=== PATIENT | male | born 2000 | race Two or more races ===

== ENCOUNTER 2023-10-15 13:12 | Emergency (ER) | payer OTHER ==
[2023-10-15 13:20] VITALS: BP 115/77; PULSE 100; RESP 16; TEMP 98.5
[2023-10-15] MEDS ORDERED: DEXAMETHASONE SOD PHOSPHATE 10 MG/1 ML VIAL IVPUSH ONE (13:37)
[2023-10-15] MEDS ORDERED: DEXAMETHASONE SOD PHOSPHATE 10 MG/1 ML VIAL ONE (13:38)
[2023-10-15] MEDS ORDERED: DEXAMETHASONE SOD PHOSPHATE 10 MG/1 ML VIAL IM ONE (13:43)
== END 2023-10-15 13:45 | disposition home or self-care (01) ==
LOC: JERFT 13:12
PROC: 3E023GC Introduction of Other Therapeutic Substance into Muscle, Percutaneous Approach (ICD-10-PCS; principal; 2023-10-15)
DX: J02.9 Acute pharyngitis, unspecified (principal)
CPT/HCPCS: 99284-25; J1100

== ENCOUNTER 2024-01-08 19:18 | Emergency (ER) | payer OTHER ==
[2024-01-08 19:23] VITALS: BP 115/68; PULSE 90; RESP 18; TEMP 98.2; BMI 19.3
[2024-01-08] MEDS ORDERED: METHOCARBAMOL 500 MG TABLET ONE (20:18)
[2024-01-08] MEDS ORDERED: LIDOCAINE 4% PATCH TP ONE (20:18)
[2024-01-08] MEDS ORDERED: KETOROLAC TROMETHAMINE 30 MG/1 ML VIAL ONE ×2 (20:18)
[2024-01-08] MEDS: LIDOCAINE 4% PATCH TP ONE (20:27)
[2024-01-08] MEDS: KETOROLAC TROMETHAMINE 30 MG/1 ML VIAL IM ONE (20:28)
[2024-01-08] MEDS: METHOCARBAMOL 500 MG TABLET PO ONE (20:28)
[2024-01-09] MEDS ORDERED: LIDOCAINE PATCH REMOVAL MC SCH (08:00)
== END 2024-01-08 22:07 | disposition home or self-care (01) ==
LOC: JERFT 19:18 → JER 19:18 → JERFT 22:07
PROC: 3E0233Z Introduction of Anti-inflammatory into Muscle, Percutaneous Approach (ICD-10-PCS; principal; 2024-01-08)
DX: M54.6 Pain in thoracic spine (principal); M54.2 Cervicalgia; M62.830 Muscle spasm of back; M47.812 Spondylosis without myelopathy or radiculopathy, cervical region
CPT/HCPCS: 72050-TC-FY; 99284-25